=== PATIENT | female | born 1975 | race Caucasian/White ===

== ENCOUNTER 2018-07-15 12:12 | Outpatient (CLI) | payer SELFPAY | END 2018-07-15 12:13 | disposition home or self-care (01) | LOC: C.LAB 12:12 | DX: Z01.419 Encounter for gynecological examination (general) (routine) without abnormal findings (principal) ==

== ENCOUNTER 2018-08-12 13:27 | Outpatient (CLI) | payer OTHER | END 2018-08-12 13:28 | disposition home or self-care (01) | LOC: C.USIC 13:27 | DX: R10.2 Pelvic and perineal pain (principal); Z12.31 Encounter for screening mammogram for malignant neoplasm of breast ==